=== PATIENT | female | born 1940 | race Caucasian/White ===

== ENCOUNTER 2021-07-29 07:14 | Emergency (ER) | payer MEDICARE ==
[~2021-07-29] VITALS: Ht 152.4 cm; Wt 44.5 kg
[~2021-07-29 07:14] MED LIST: ASPIRIN81 M1 PO; CRESTOR40 M1 PO; ELIQUIS2.5 M1 PO; FUROSEMIDE40 MG PO; LEVOTHYROXINE125 MCG PO; SERTRALINE HYDR25 MG PO
[2021-07-29 07:57] LABS: BASO % 0.2 % (0.0-1.0); EOS # 0.2 10*3/uL (0.0-0.4); EOS % 1.9 % (1.0-4.0); HEMATOCRIT 40.2 % (37.0-47.0); LYMPH # 1.2 10*3/uL (1.3-4.4); LYMPH % 12.9 % (27.0-41.0); MEAN CELL VOLUME 94.6 fl (81.0-99.0); MEAN CORPUSCULAR HGB 29.4 pg (27.0-31.0); MEAN CORPUSCULAR HGB CONC 31.1 g/dl (33.0-37.0); MEAN PLATELET VOLUME 11.1 fl (9.6-12.3); MONO # 0.8 10*3/uL (0.1-1.0); MONO % 8.8 % (3.0-9.0); NEUT # 6.8 10*3/uL (2.3-7.9); PLATELET COUNT AUTOMATED 230 10*3/uL (130-400); RED BLOOD COUNT 4.25 10*6/uL (4.10-5.10); RED CELL DISTRI WIDTH 15.3 % (0-14.5); WHITE BLOOD COUNT 8.9 10*3/uL (4.8-10.8)
[2021-07-29 08:08] LABS: ACT PARTIAL THROMBO TIME 28.2 SECONDS (20.0-32.1)
[2021-07-29 08:15] LABS: ALBUMIN 3.3 gm/dl (3.1-4.5); ALKALINE PHOSPHATASE 95 U/L (45-117); BUN 32 mg/dl (7-24); CHLORIDE 109 mmol/L (98-107); CREATININE 0.71 mg/dL (0.55-1.02); LIPASE 177 U/L (73-393); POTASSIUM 3.8 mmol/L (3.5-5.1); SGOT/AST 18 IU/L (3-35); SGPT/ALT 25 U/L (12-78); SODIUM 141 mmol/L (136-145); TOTAL PROTEIN 6.8 gm/dL (6.4-8.2)
== END 2021-07-29 08:11 | disposition left against medical advice (07) ==
LOC: ED 07:14
PROVIDERS: Emergency Medicine
DX: R45.6 Violent behavior (principal); Z79.899 Other long term (current) drug therapy; Z79.82 Long term (current) use of aspirin; Z88.8 Allergy status to other drugs, medicaments and biological substances

== ENCOUNTER 2021-08-20 01:57 | Inpatient (IN) | payer MEDICARE ==
[2021-08-20] VITALS (7 sets, daily range): BP systolic 127–154; BP diastolic 38–60
[~2021-08-20] VITALS: Ht 160 cm; Wt 47.9 kg
[2021-08-20 02:42] LABS: BASO % 0.2 % (0.0-1.0); EOS % 0.2 % (1.0-4.0); HEMATOCRIT 38.5 % (37.0-47.0); LYMPH # 0.3 10*3/uL (1.3-4.4); LYMPH % 6.1 % (27.0-41.0); MEAN CELL VOLUME 91.7 fl (81.0-99.0); MEAN CORPUSCULAR HGB 29.5 pg (27.0-31.0); MEAN CORPUSCULAR HGB CONC 32.2 g/dl (33.0-37.0); MEAN PLATELET VOLUME 11.1 fl (9.6-12.3); MONO # 0.2 10*3/uL (0.1-1.0); MONO % 3.9 % (3.0-9.0); NEUT # 4.6 10*3/uL (2.3-7.9); NEUT % 89.4 % (47.0-73.0); PLATELET COUNT AUTOMATED 222 10*3/uL (130-400); RED CELL DISTRI WIDTH 15.5 % (0-14.5); WHITE BLOOD COUNT 5.1 10*3/uL (4.8-10.8)
[2021-08-20 02:58] LABS: ALKALINE PHOSPHATASE 86 U/L (45-117); BUN 31 mg/dl (7-24); CHLORIDE 104 mmol/L (98-107); CREATININE 0.78 mg/dL (0.55-1.02); POTASSIUM 3.8 mmol/L (3.5-5.1); SGOT/AST 18 IU/L (3-35); SGPT/ALT 27 U/L (12-78); SODIUM 137 mmol/L (136-145); TOTAL PROTEIN 6.4 gm/dL (6.4-8.2)
[2021-08-20 03:15] LABS: ARTERIAL BLOOD GAS PH 7.429 (7.35-7.45); ARTERIAL BLOOD GAS PO2 205.7 (80-90)
[2021-08-20] MEDS ORDERED: FUROSEMIDE20 M1 PO (06:39)
[2021-08-20] MEDS ORDERED: LEVOTHYROXINE112 MCG PO (06:39)
[2021-08-20 06:40] LABS: HEMATOCRIT 34.5 % (37.0-47.0); MEAN CELL VOLUME 93.2 fl (81.0-99.0); MEAN CORPUSCULAR HGB 29.7 pg (27.0-31.0); MEAN CORPUSCULAR HGB CONC 31.9 g/dl (33.0-37.0); MEAN PLATELET VOLUME 11.9 fl (9.6-12.3); PLATELET COUNT AUTOMATED 181 10*3/uL (130-400); RED CELL DISTRI WIDTH 15.7 % (0-14.5); WHITE BLOOD COUNT 7.6 10*3/uL (4.8-10.8)
[2021-08-20] MEDS ORDERED: CHLORHEXIDINE473 M1 PO (06:40)
[2021-08-20] MEDS ORDERED: METOPROLOL SUCC25 M2 PO (06:41)
[2021-08-20] MEDS ORDERED: MIRTAZAPINE15 M2 PO (06:42)
[2021-08-20 06:43] LABS: MANUAL DIFF REFLEX YES
[2021-08-20] MEDS ORDERED: OSTERA TABLET1 EACH PO (06:45)
[2021-08-20] MEDS ORDERED: CEREFOLIN CAPL1 EACH PO (06:47)
[2021-08-20 07:22] LABS: PLATELET SUFFICIENCY NORMAL (NORMAL); TOTAL CELLS COUNTED 100 #CELLS
[2021-08-20] MEDS ORDERED: QUETIAPINE FUMA25 MG PO (14:55)
[2021-08-21] VITALS: BP 119/44
[2021-08-21 05:50] LABS: BUN 24 mg/dl (7-24); CHLORIDE 110 mmol/L (98-107); CREATININE 0.66 mg/dL (0.55-1.02); SODIUM 139 mmol/L (136-145)
[2021-08-21 06:04] LABS: BASO % 0.1 % (0.0-1.0); HEMATOCRIT 30.5 % (37.0-47.0); LYMPH # 0.7 10*3/uL (1.3-4.4); LYMPH % 5.5 % (27.0-41.0); MEAN CELL VOLUME 92.7 fl (81.0-99.0); MEAN CORPUSCULAR HGB 30.1 pg (27.0-31.0); MEAN CORPUSCULAR HGB CONC 32.5 g/dl (33.0-37.0); MEAN PLATELET VOLUME 12.1 fl (9.6-12.3); MONO # 0.8 10*3/uL (0.1-1.0); MONO % 6.2 % (3.0-9.0); NEUT # 11.8 10*3/uL (2.3-7.9); NEUT % 87.8 % (47.0-73.0); PLATELET COUNT AUTOMATED 168 10*3/uL (130-400); RED BLOOD COUNT 3.29 10*6/uL (4.10-5.10); RED CELL DISTRI WIDTH 15.8 % (0-14.5); WHITE BLOOD COUNT 13.4 10*3/uL (4.8-10.8)
[2021-08-21 08:00] VITALS: BP 130/55
[2021-08-21 12:00] VITALS: BP 130/55
[2021-08-21 16:00] VITALS: BP 150/52
[2021-08-21 20:00] VITALS: BP 156/58
[2021-08-22] VITALS: BP 150/55
[2021-08-22 05:38] LABS: BUN 31 mg/dl (7-24); CHLORIDE 108 mmol/L (98-107); CREATININE 0.63 mg/dL (0.55-1.02); POTASSIUM 3.9 mmol/L (3.5-5.1); SODIUM 139 mmol/L (136-145)
[2021-08-22 05:53] LABS: BASO % 0.1 % (0.0-1.0); HEMATOCRIT 34.1 % (37.0-47.0); LYMPH # 0.8 10*3/uL (1.3-4.4); LYMPH % 5.8 % (27.0-41.0); MEAN CELL VOLUME 93.2 fl (81.0-99.0); MEAN CORPUSCULAR HGB 29.8 pg (27.0-31.0); MONO # 0.9 10*3/uL (0.1-1.0); MONO % 6.6 % (3.0-9.0); NEUT # 11.9 10*3/uL (2.3-7.9); NEUT % 87.1 % (47.0-73.0); PLATELET COUNT AUTOMATED 203 10*3/uL (130-400); RED BLOOD COUNT 3.66 10*6/uL (4.10-5.10); RED CELL DISTRI WIDTH 15.5 % (0-14.5); WHITE BLOOD COUNT 13.7 10*3/uL (4.8-10.8)
[2021-08-22 08:32] VITALS: BP 156/56
[2021-08-22 12:00] VITALS: BP 159/53
[2021-08-22 16:00] VITALS: BP 133/77
[2021-08-22 20:00] VITALS: BP 165/59
[2021-08-23] VITALS (7 sets, daily range): BP systolic 145–199; BP diastolic 59–79
[2021-08-23 06:08] LABS: BILIRUBIN Negative (Negative); BLOOD Negative (Negative); CLARITY Clear (Clear); COLOR Yellow (Yellow); GLUCOSE Negative (Negative); KETONE Trace (Negative); LEUKO ESTERASE Negative (Negative); NITRITE Negative (Negative); SPECIFIC GRAVITY >= 1.030 (1.001-1.030)
[2021-08-23 06:30] LABS: BASO % 0.1 % (0.0-1.0); EOS # 0.1 10*3/uL (0.0-0.4); EOS % 0.6 % (1.0-4.0); HEMATOCRIT 31.9 % (37.0-47.0); LYMPH # 0.7 10*3/uL (1.3-4.4); LYMPH % 7.3 % (27.0-41.0); MEAN CELL VOLUME 94.4 fl (81.0-99.0); MEAN CORPUSCULAR HGB 29.9 pg (27.0-31.0); MEAN CORPUSCULAR HGB CONC 31.7 g/dl (33.0-37.0); MEAN PLATELET VOLUME 11.9 fl (9.6-12.3); MONO # 0.8 10*3/uL (0.1-1.0); MONO % 8.9 % (3.0-9.0); NEUT # 7.4 10*3/uL (2.3-7.9); NEUT % 82.2 % (47.0-73.0); PLATELET COUNT AUTOMATED 160 10*3/uL (130-400); RED BLOOD COUNT 3.38 10*6/uL (4.10-5.10); RED CELL DISTRI WIDTH 15.5 % (0-14.5)
[2021-08-23 06:39] LABS: BUN 20 mg/dl (7-24); CHLORIDE 110 mmol/L (98-107); CREATININE 0.56 mg/dL (0.55-1.02); POTASSIUM 3.8 mmol/L (3.5-5.1); SODIUM 139 mmol/L (136-145)
[2021-08-23 06:45] LABS: BACTERIA 2+; MUCOUS 1+
[2021-08-24] VITALS: BP 171/69
[2021-08-24 04:00] VITALS: BP 152/60
[2021-08-24 08:00] VITALS: BP 150/54
[2021-08-24 12:00] VITALS: BP 193/65
[2021-08-24 16:00] VITALS: BP 190/66
[2021-08-24 20:00] VITALS: BP 185/53
[2021-08-25] VITALS: BP 169/69
[2021-08-25 02:30] VITALS: BP 172/78
[2021-08-25 12:00] VITALS: BP 199/84
[2021-08-25 16:00] VITALS: BP 161/76
[2021-08-25 20:00] VITALS: BP 212/71
[2021-08-26 09:09] VITALS: BP 176/64
[2021-08-26] MEDS ORDERED: HYDROCODONE-AC1 EAC1 PO (10:55)
[2021-08-26] MEDS ORDERED: QUETIAPINE FUMA25 MG PO (10:55)
[2021-08-26] MEDS ORDERED: METOPROLOL SUCC25 M2 PO (10:55)
[2021-08-26] MEDS ORDERED: AUGMENTIN 875-875 MG PO (10:55)
[2021-08-26] MEDS ORDERED: HYDROXYZINE HCL25 MG PO (10:55)
== END 2021-08-26 12:26 | DRG 871 ==
LOC: ED 01:57 → 4E 03:47 → EDHOLD 03:47 → 4E 03:52
PROVIDERS: Emergency Medicine; Internal Medicine; Student in an Organized Health Care Education/Training Program; ADMIT Family Medicine; ATTEND Family Medicine
PROC: 5A09357 Assistance with Respiratory Ventilation, Less than 24 Consecutive Hours, Continuous Positive Airway Pressure (ICD-10-PCS; principal; 2021-08-20)
PROC: BD1BYZZ Fluoroscopy of Mouth/Oropharynx using Other Contrast (ICD-10-PCS; 2021-08-21)
PROC: BD1BYZZ Fluoroscopy of Mouth/Oropharynx using Other Contrast (ICD-10-PCS; 2021-08-25)
DX: A41.9 Sepsis, unspecified organism (principal); J69.0 Pneumonitis due to inhalation of food and vomit; J96.01 Acute respiratory failure with hypoxia; K92.2 Gastrointestinal hemorrhage, unspecified; I50.32 Chronic diastolic (congestive) heart failure; E44.0 Moderate protein-calorie malnutrition; E87.2 Acidosis; Z68.1 Body mass index [BMI] 19.9 or less, adult; R65.20 Severe sepsis without septic shock; I48.91 Unspecified atrial fibrillation; E87.8 Other disorders of electrolyte and fluid balance, not elsewhere classified; Z66 Do not resuscitate; Z51.5 Encounter for palliative care; Z20.822 Contact with and (suspected) exposure to COVID-19; Z79.899 Other long term (current) drug therapy; Z88.8 Allergy status to other drugs, medicaments and biological substances

== ENCOUNTER 2021-11-29 12:35 | Inpatient (IN) | payer OTHER, MEDICARE ==
[~2021-11-29] VITALS: Ht 152.4 cm; Wt 49.9 kg
[~2021-11-29 12:35] MED LIST changes: +ACETAMINOPHEN325 M2 PO; +AUGMENTIN 875-875 MG PO; +CEREFOLIN CAPL1 EACH PO; +CHLORHEXIDINE473 M1 PO; +FUROSEMIDE20 M1 PO; +GLYCOLAX PO; +HYDROCODONE-AC1 EAC1 PO; +HYDROXYZINE HCL25 MG PO; +HYDROXYZINE PAM50 MG PO; +LEVOTHYROXINE112 MCG PO; +LEVOXYL112 MCG PO; +METOPROLOL SUCC25 M2 PO; +MILK OF MA400 MG/5 M PO; +MIRTAZAPINE15 M2 PO; +OSTERA TABLET1 EACH PO; +PRESERVISION A1 EAC3 PO; +Peridex 473 ML473 ML PO; +QUETIAPINE FUMA25 MG PO; +QUETIAPINE FUMA50 M1 PO; +ROSUVASTATIN CA40 MG PO; +VITAMIN D325 MC1 PO
== END 2021-11-30 10:29 | DRG 871 ==
LOC: 4E 12:35
PROVIDERS: ADMIT Internal Medicine; ATTEND Internal Medicine
DX: A41.9 Sepsis, unspecified organism (principal); J69.0 Pneumonitis due to inhalation of food and vomit; J96.01 Acute respiratory failure with hypoxia; I48.21 Permanent atrial fibrillation; E11.9 Type 2 diabetes mellitus without complications; I35.0 Nonrheumatic aortic (valve) stenosis; R62.7 Adult failure to thrive; Z20.822 Contact with and (suspected) exposure to COVID-19; Z51.5 Encounter for palliative care; Z68.21 Body mass index [BMI] 21.0-21.9, adult